=== PATIENT | male | born 1955 | race Caucasian/White ===

== ENCOUNTER 2022-07-27 05:36 | Observation (INO) | payer OTHER ==
--- NOTE | 2022-07-23 09:24 | RAD REPORT ---
EXAM DESCRIPTION: RAD - Chest Pa And Lat (2 Views) - 07/23/2022 9:18 am CLINICAL HISTORY: Pre op pending hip arthroplasty Chest pain. COMPARISON: No comparisons FINDINGS: The lungs are clear. The heart is normal in size. No displaced fractures. Bridging anterio r osteophytes seen throughout the thoracic spine most likely representing DISH.
[2022-07-23 09:51] LABS: Urine Bilirubin NEGATIVE (Negative); Urine Blood Negative (Negative); Urine Clarity Clear (Clear); Urine Color Light-Yellow (Yellow); Urine Glucose NEGATIVE (Negative); Urine Protein NEGATIVE (Negative); Urine Urobilinogen Normal (Normal); Urine pH 5.5 (5.0-7.0)
[2022-07-23 10:02] LABS: Absolute Lymphocytes (CBC) 1.4 K/uL (0.7-4.9); Hematocrit 43.8 % (39.6-49.0); Lymphocytes % 18.8 % (15.3-44.8); MCV 88.6 fL (80-100); MPV 8.2 fL (7.6-11.3); RBC Red Blood Cell Count 4.94 M/uL (4.33-5.43)
[2022-07-23 10:06] LABS: Protime INR 0.98
[2022-07-23 10:23] LABS: Albumin 3.9 g/dL (3.4-5.0); Bilirubin Total 0.4 mg/dL (0.2-1.0); Protein, Total 7.1 g/dL (6.4-8.2)
--- NOTE | 2022-07-23 10:46 | EKG ---
Test Date: 2022-07-23 Test Time: 09:02:15 Art Instructor: NELLA MEASUREMENT RESULTS: Intervals: Rate: 81 MO: 170 QRSD: 82 QT: 360 QTc: 418 Crosby: P: 72 MO: 170 QRS: 72 T: 70 INTERPRETIVE STATEMENTS: Normal sinus rhythm Normal ECG No previous ECG available for comparison Electronically Signed On 07-23-22 10:46:21 DECKHAND ENGINEER by Jimenez Pascual
[2022-07-26 10:54] LABS: SARS-CoV-2 Antigen Rapid Res Negative (Negative)
[2022-07-27] MEDS ORDERED: CELECOXIB 100 MG CAPSULE ONE (05:54)
[2022-07-27] MEDS ORDERED: Ringers Lactate 1,000 ML IV ONE ×2 (05:55→08:23)
[2022-07-27] MEDS ORDERED: Oxycodone HCl/Acetaminophen 1 TAB TAB ONE (05:55)
[2022-07-27] MEDS ORDERED: GABAPENTIN 100 MG CAP ONE (05:55)
[2022-07-27] MEDS ORDERED: ACETAMINOPHEN 500 MG TAB ONE (05:55)
[2022-07-27] MEDS ORDERED: dexAMETHasone 10 MG/ML VIAL ONE ×2 (06:35→06:42)
[2022-07-27] MEDS ORDERED: EPINEPHRINE/PF 1 MG/ML AMP ONE (06:35)
[2022-07-27] MEDS ORDERED: BUPIVACAINE 0.25% PF 30 ML VIAL ONE (06:36)
[2022-07-27] MEDS ORDERED: HYDROMORPHONE HCL 1 MG/ML INJ ONE (06:36)
[2022-07-27] MEDS ORDERED: FENTANYL CITR 100 MCG/2 ML ONE (06:41)
[2022-07-27] MEDS ORDERED: propofoL 200 MG/20 ML VIAL IV ONE (06:41)
[2022-07-27] MEDS ORDERED: MIDAZOLAM HCL 2 MG/2 ML INJ ONE (06:42)
[2022-07-27] MEDS ORDERED: LIDOCAINE 2% MPF 5 ML VIAL ONE (06:42)
[2022-07-27] MEDS ORDERED: ROCURONIUM 50 MG/5 ML VIAL IV ONE (06:42)
[2022-07-27] MEDS ORDERED: KETOROLAC 30 MG/ML INJ ONE (06:42)
[2022-07-27] MEDS ORDERED: KETAMINE HCL 500 MG/5 ML VIAL ONE (06:43)
[2022-07-27] MEDS ORDERED: ONDANSETRON 4 MG/2 ML VIAL ONE (06:44)
[2022-07-27] MEDS: TRANEXAMIC ACID 1,000 MG/10 ML VIAL IV ONE ×3 (07:00→09:17)
[2022-07-27] MEDS: CEFAZOLIN SODIUM 2 GM/VIAL ONE ×2 (07:00→07:21)
[2022-07-27] MEDS ORDERED: NS 0.9% VIAL 20 ML ONE (07:39)
[2022-07-27] MEDS ORDERED: NS 0.9% VIAL 10 ML ONE (08:47)
--- NOTE | 2022-07-27 09:37 | RAD REPORT ---
EXAM DESCRIPTION: RAD - Hip Right 1 View - 07/27/2022 9:25 am CLINICAL HISTORY: Right hip surgery FINDINGS: Two x-rays obtained. They demonstrate performance of a right hip arthroplasty. No fracture visualized
--- NOTE | 2022-07-27 10:04 | P.BOP ---
Preoperative diagnosis: right hip arthritis Postoperative diagnosis: same Primary procedure: right total hip arthoplasty Estimated blood loss: 500 Anesthesia: General Complications: None Transferred to: Recovery Room Condition: Good
[2022-07-27] MEDS ORDERED: SODIUM CHLORIDE IV PRN (10:05)
[2022-07-27] MEDS ORDERED: DOCUSATE NA 100 MG CAP PO PRN (10:05)
[2022-07-27] MEDS ORDERED: MORPHINE IV PRN (10:05)
[2022-07-27] MEDS ORDERED: ONDANSETRON 4 MG/2 ML VIAL IV PRN (10:05)
[2022-07-27] MEDS ORDERED: HYDROCODONE/APAP 10/325 TAB PO PRN (10:14)
[2022-07-27] MEDS ORDERED: SUCCINYLCHOLINE 20 MG/ML (10 ML) IV ONE (10:59)
[2022-07-27 11:16] VITALS: BMI 35.2
[2022-07-27] MEDS: CEFAZOLIN 1 GM in NA CHLORIDE 0.9% 50 ML IVPB SCH ×3 (11:45→23:37)
[2022-07-27] MEDS ORDERED: PNEUMOCOCCAL VACCINE 0.5 ML IMVAC ONE (12:00)
[2022-07-27] MEDS ORDERED: INFLUENZA VACCINE (for 6+ mo) 0.5 ML DOSE IMVAC ONE (12:00)
[2022-07-27 12:16] LABS: Hematocrit 39.8 % (39.6-49.0)
--- NOTE | 2022-07-27 15:17 | P.CNS ---
Reason for Consult: Medical management Requesting Physician: Fahad Corley Chief Complaint: Right hip pain History of Present Illness: Patient is a 67-year-old male with a past medical history significant for gout, insomnia, hypothyroidism, osteoarthritis, obesity, HLD who presents to the hospital for a planned procedure with the orthopedic surgeon. Patient reported that he has been having pain in the right hip for the past 1 year and has been following up with his orthopedic surgeon. Patient has tried conservative management as well as pain medication but has not experienced any relief in pain. His orthopedic surgeon referred him to operating orthopedic surgeon who scheduled patient for a right total hip arthroplasty. Patient rated right hip pain before procedure as 8/10 in severity and described pain as aching in quality. Patient denies any other signs or symptoms. Symptoms are aggravated or relieved by nothing. Patient currently denies any pain. Patient resting in bed. Spouse at bedside. Allergies No Known Allergies Allergy (Verified 07/27/22 06:07) Home Medications: Allopurinol 300 mg PO BEDTIME 07/23/22 Ascorbic Acid [Vitamin C] 1,000 mg PO DAILY 07/23/22 Calcium Carbonate [Calcium] 600 mg PO DAILY 07/23/22 Cholecalciferol (Vitamin D3) [Vitamin D3] 1,000 unit PO DAILY 07/23/22 Cyanocobalamin (Vitamin B-12) [Vitamin B-12] 5,000 mcg PO DAILY 07/23/22 Ibuprofen [Ibuprofen Ib] 1 - 2 tab PO PRN PRN 07/23/22 L.acidoph,Paracasei, B.lactis [Probiotic] 1 each PO DAILY 07/23/22 Levothyroxine [Synthroid] 100 mcg PO [id number] 07/23/22 Simvastatin 40 mg PO BEDTIME 07/23/22 Turmeric 400 mg PO DAILY 07/23/22 Zolpidem Tartrate [Ambien] 10 mg PO BEDTIME 07/23/22 - Past Medical/Surgical History Diabetic: No -: gout -: thyroid problem -: ETOH use -: RAMAKRISHNA -: hernia repair - Family History Mother Medical History: Other (see notes) Notes: arthritis Father History Unknown: Yes Brother Medical History: Cancer Sister Medical History: Cancer - Social History Smoking Status: Unknown if ever smoked Alcohol use: Yes CD- Drugs: No Caffeine use: Yes Place of Residence: Home Review of Systems General: Unremarkable Eyes: Unremarkable ENT: Unremarkable Respiratory: Unremarkable Cardiovascular: Unremarkable Gastrointestinal: Unremarkable Genitourinary: Unremarkable Musculoskeletal: Other (Right hip pain) Integumentary: Unremarkable Neurological: Unremarkable Lymphatics: Unremarkable Physical Examination Temp Pulse Resp BP Pulse Ox 97.0 F 87 16 138/68 95 07/27/22 12:00 07/27/22 12:00 07/27/22 12:00 07/27/22 12:00 07/27/22 12:00 General: Alert, In no apparent distress, Oriented x3, Cooperative HEENT: Atraumatic, Normocephalic, PERRLA, Mucous membr. moist/pink Neck: Supple, 2+ carotid pulse no bruit, JVD not distended, Without JVD or thyroid abnormality Respiratory: Clear to auscultation bilaterally, Normal air movement Cardiovascular: No edema, Normal pulses, Regular rate/rhythm Capillary refill: <2 Seconds Gastrointestinal: Normal bowel sounds, Soft and benign Musculoskeletal: Tenderness Integumentary: No rashes, No breakdown, No significant lesion Neurological: Normal speech, Sensation intact, Normal affect Lymphatics: No axilla or inguinal lymphadenopathy Laboratory Data (last 24 hrs) 07/27/22 12:04: Hgb 13.1 L, Hct 39.8 Conclusions/Impression: --Right hip pain. Status post right hip total arthroplasty. Orthopedic surgeon on board. PT eval and treat. Will await further recommendations. --Gout. Continue home medication. --Hypothyroidism. Continue Synthroid. --Hyperlipidemia. Continue statin. --Obesity. Likely secondary to excess calories intake. Patient counseled on weight reduction, diet and excise therapy. --RAMAKRISHNA. Continue supportive care. --Insomnia. Continue home medication. --DVT prophylaxis with SCDs. Continue chemical prophylaxis in a.m. Physician Review: Patient Assessed, Agree with Above Assessment and Plan Critical Care: No
[2022-07-27] MEDS ORDERED: ACETAMINOPHEN 325 MG TABLET PO PRN (15:19)
[2022-07-27 16:59] LABS: Hematocrit 37.8 % (39.6-49.0)
--- NOTE | 2022-07-27 20:02 | OP ---
Date of Procedure: 07/27/2022 Surgeon: Fahad Corley MD Preoperative Diagnosis: Severe right hip arthritis. Postoperative Diagnosis: Severe right hip arthritis. Procedure: Right total hip arthroplasty using the [place] system. Estimated Blood Loss: 500 cc. Complications: There were no complications. Indications For Operation: Mr. Cesar is a 67-year-old male who has unfortunately been suffering with severe pain in his right hip. X-rays demonstrated significant degenerative changes of the hip. He h as loss of range of motion of his hip including extension as well as internal and external rotation. Risks, benefits, and alternatives of different methods of treating this were discussed with him and he decided to proceed with total hip arthroplasty. All of his questions were invited and answered. Description Of Procedure: Patient was taken to the operating room, placed in the supine position. G eneral anesthesia was obtained by the staff. Following this, he was then placed left side down with all bony prominences being checked with the use of an axillary roll. He was properly positioned usin g hip positioners. His right lower extremity was then prepped and draped in usual sterile fashion fo r the procedure. Following this, a standard posterolateral incision was taken down carefully through skin only, meticulous hemostasis being maintained using Bovie electrocautery. This led down to the fascia and a small eloisa was made in the fascia palpating gluteal tendon and this fascial incision was taken up to near the tip of the greater trochanter where the gluteus muscles were encountered. It w as then curved gently backward using fingers to spread the gluteus. The sciatic nerve was palpated a nd protected as the Charnley was placed. There was a significant amount of bursal tissue, which was removed. Care being taken to protect the sciatic nerve and the abductors. The external rotators and capsule were then taken down and tagged for later repair. It was extremely difficult to dislocate t he hip because of the superior and posterior osteophytes as well as severe degenerative changes, ther efore underlying surfaces are protected as a neck cut was made, which allows for removal of the head. The head was then removed and the acetabulum was inspected. There was found to have quite a bit of anterior and superior erosion. The posterior aspect being fairly well maintained. The medial poste rior portion was then reamed to help deepen the socket and establish the true floor of the acetabulum . Following this, it was then sequentially reamed up to a size 59. There was some thought of increa sing this to a size 61 for placement of 62, however, the anterior wall appeared to be getting very th in and it was felt that the reamer was quite concentric. Decision was made to place a 60 Trident cup . This appears to fit well. Attention was then turned to the femur. A small amount of femoral neck was cut to allow for better visualization and a switchbox assembler was used to establish a lateral entry por dl. pointing machine operator was then used as a canal finder. Following this, it was then sequentially broached up to a size 2. It was noted preoperatively that his femoral canal is extremely tight, especially f or size and did not really feel like he will go to 3. An x-ray was then taken, which demonstrated th e cup appeared to be a little vertical, but the stem appeared to be appropriately sized. As he does have a rather smaller prosthesis and neck cut is quite low to allow access to the acetabulum, this wa s considered for further sizing. After this the broach was removed and a punch was used to establish a slightly more horizontal position. The acetabulum was then hammered in place. It was very stable with finger pressure and the industrial education instructor had good sound. After this, size 2 high offset stem was selec katelyn and the liner was placed within the acetabulum without difficulty. The final stem was then place d and decision was made to trial with a +4. We trialed with a +4. It was stable to flexion to 90 de grees, internal rotation to at least 45 degrees and adduction. He does have some levering of the hip because of his abdomen, but it did appear to be very stable. Decision was made to trial with a +8 a s well. The +8 appeared to be too tight and too long, not allowing good extension. Decision was mad e to move forward with a +4 because of the small femoral prosthesis as well as a low neck cut and thi s was then placed without difficulty and relocated. It has no vertical shuck. It is high offset. H nacho does have a full extension and extension past this. He also has flexion to over 90 degrees with fu ll adduction and internal rotation to at least 40 degrees. After this, the wound was copiously irrig ated and the external rotators and capsule were then repaired back to the greater trochanter using casper ne tunnels. The wound was again irrigated and the fascia was closed using heavy Vicryl sutures. It was again irrigated and skin was closed using Vicryl sutures, followed by carolyn. Patient was then placed in Aquacel dressing and taken to recovery room. CELENA Voice ID: [id number] Report ID: [id number]
[2022-07-27] MEDS ORDERED: allopurinoL 300 MG TAB PO SCH (21:00)
[2022-07-27] MEDS ORDERED: ZOLPIDEM TARTRATE 10 MG TABLET PO SCH (21:00)
[2022-07-27] MEDS ORDERED: HOME MED 1 EA UNK (Simvastatin [Simvastatin] 40 MG Tablet) PO SCH (21:00)
[2022-07-27] MEDS ORDERED: ATORVASTATIN 20 MG TAB PO SCH (21:00)
[2022-07-28 04:40] LABS: Potassium 4.7 mmol/L (3.5-5.1)
[2022-07-28 04:42] LABS: Absolute Lymphocytes (CBC) 0.7 K/uL (0.7-4.9); Hematocrit 35.2 % (39.6-49.0); MCV 89.6 fL (80-100); MPV 8.2 fL (7.6-11.3); RBC Red Blood Cell Count 3.93 M/uL (4.33-5.43)
[2022-07-28 05:46] LABS: Blood Morphology Comment NOT SEEN (NOT SEEN); Platelet Estimate ADEQ
[2022-07-28] MEDS ORDERED: LEVOTHYROXINE SOD 0.1 MG TAB PO SCH (06:00)
[2022-07-28] MEDS ORDERED: HOME MED 1 EA UNK (Calcium Carbonate [Calcium] 600 MG Tablet) PO SCH (09:00)
[2022-07-28] MEDS ORDERED: VITAMIN D 1000 UNIT TAB PO SCH (09:00)
[2022-07-28] MEDS ORDERED: HOME MED 1 EA UNK (Ascorbic Acid [Vitamin C] 1,000 MG Tablet) PO SCH (09:00)
[2022-07-28] MEDS ORDERED: ASCORBIC ACID 500 MG TABLET PO SCH (09:00)
[2022-07-28] MEDS ORDERED: HOME MED 1 EA UNK (Cyanocobalamin (Vitamin B-12) [Vitamin B-12] 5,000 MCG Capsule) PO SCH (09:00)
[2022-07-28] MEDS ORDERED: HOME MED 1 EA UNK (Turmeric [Turmeric] 400 MG Capsule) PO SCH (09:00)
[2022-07-28] MEDS ORDERED: ENOXAPARIN 40 MG/0.4 ML SQ SCH (09:00)
[2022-07-28] MEDS ORDERED: CALCIUM CARBONATE 500 MG TAB PO SCH (09:00)
[2022-07-28] MEDS ORDERED: LACTOBACILLUS/ACIDOPHILUS TAB PO SCH (09:00)
[2022-07-28] MEDS ORDERED: HOME MED 1 EA UNK (L.Acidoph,Paracasei, B.Lactis [Probiotic] Capsule) PO SCH (09:00)
[2022-07-28] MEDS ORDERED: HOME MED 1 EA UNK (Cholecalciferol (Vitamin D3) [Vitamin D3] 1,000 UNIT Capsule) PO SCH (09:00)
[2022-07-28 09:09] VITALS: O2SAT 95
[2022-07-28 12:09] VITALS: BP 140/63; TEMP 97.4
--- NOTE | 2022-07-28 22:26 | P.PN ---
Date of Service: 07/28/22 Subjective: doing well pain tolerable eating, voiding without issue ROS: A complete review of systems was performed and is negative except as mentioned above Physical Exam: Gen: NAD, AOx3 CV: regular rate & rhythm, no edema Pulm: non-labored respirations, clear bilaterally Abd: soft, non-tender, non-distended Skin: surgical dressing c/d/i, no palpable fluid collection Neuro: normal speech, normal affect, moves all extremities, R hip limited with some discomfort vitals reviewed Problem List Right hip osteoarthritis, no s/p right total hip arthroplasty gout hypothyroidism HLD Obesity RAMAKRISHNA overall doing well pain tolerable working with PT planning on dc home later today after another eval with PT home with home PT patient to resume prior home meds as prescribed discharge per ortho Code: full Dispo: home, PT anticipate today
== END 2022-07-28 14:11 | disposition home health service (06) ==
LOC: OR 05:36 → 4TH 10:22
PROVIDERS: ADMIT Orthopaedic Surgery; ATTEND Orthopaedic Surgery
PROC: 0SR906A Replacement of Right Hip Joint with Oxidized Zirconium on Polyethylene Synthetic Substitute, Uncemented, Open Approach (ICD-10-PCS; principal; 2022-07-27 07:00)
DX: M16.11 Unilateral primary osteoarthritis, right hip (principal); M25.551 Pain in right hip; E78.00 Pure hypercholesterolemia, unspecified; G47.00 Insomnia, unspecified; E66.9 Obesity, unspecified; E03.9 Hypothyroidism, unspecified; M10.9 Gout, unspecified; Z20.822 Contact with and (suspected) exposure to COVID-19
CPT/HCPCS: 93005; 85025 ×2; 80048; 36415 ×4; 86900; 86850; 85610; 86901; 88304; 88311; 85730; 85018 ×2; 85014 ×2; 81003; 80053; 83880; 71046; 73501; 97116; 97161; 97530 ×2; 87811; 27130; J2704; J0171; J0330; J2001; J1650; J2250; J3010; J1100 ×2; A4216 ×2; J1170; J7120 ×2; J2405; J0690 ×3; G0378; G0379

== ENCOUNTER 2022-12-27 11:18 | Day surgery (SDC) | payer OTHER ==
[2022-12-27] MEDS: Ringers Lactate 1,000 ML IV ONE (11:45)
[2022-12-27] MEDS ORDERED: propofoL 200 MG/20 ML VIAL IV ONE ×2 (12:36)
[2022-12-27] MEDS ORDERED: LIDOCAINE 1% MPF 5 ML VIAL ONE (12:36)
[2022-12-27 13:20] VITALS: TEMP 97.1
[2022-12-27 13:21] VITALS: BP 132/69; O2SAT 96
== END 2022-12-27 13:35 | disposition home or self-care (01) ==
LOC: OR 11:18
PROVIDERS: ATTEND Surgery
PROC: 0DBM8ZX Excision of Descending Colon, Via Natural or Artificial Opening Endoscopic, Diagnostic (ICD-10-PCS; principal; 2022-12-27 13:30)
DX: Z12.11 Encounter for screening for malignant neoplasm of colon (principal); D12.4 Benign neoplasm of descending colon; K64.8 Other hemorrhoids
CPT/HCPCS: 88305; 45385; J2704 ×2; J2001; J7120